=== PATIENT | female | born 1990 | race African-American/Black ===

== ENCOUNTER 2024-01-27 00:15 | Emergency (ER) | payer OTHER ==
[~2024-01-27] VITALS: Ht 165.1 cm; Wt 109.1 kg
[2024-01-27 01:18] VITALS: BP 120/86; PULSE 91; TEMP 98.4
== END 2024-01-27 01:23 | disposition home or self-care (01) ==
LOC: COL.ER 00:15
DX: S93.402A Sprain of unspecified ligament of left ankle, initial encounter (principal); F17.210 Nicotine dependence, cigarettes, uncomplicated; X50.1XXA Overexertion from prolonged static or awkward postures, initial encounter